=== PATIENT | female | born 1995 | race African-American/Black ===

== ENCOUNTER 2020-12-28 17:21 | Emergency (ER) | payer OTHER ==
[~2020-12-28] VITALS: Ht 167.6 cm; Wt 85.3 kg
[2020-12-28] MEDS ORDERED: PERCOCET 5-3251 EACH PO (22:28)
[2020-12-28] MEDS ORDERED: AZITHROMYCIN250 MG PO (22:28)
[2020-12-28] MEDS ORDERED: NASAL MIST126 ML (22:50)
== END 2020-12-28 22:55 | disposition home or self-care (01) ==
LOC: ER 17:21
DX: A49.3 Mycoplasma infection, unspecified site (principal); D57.1 Sickle-cell disease without crisis; Z03.818 Encounter for observation for suspected exposure to other biological agents ruled out